=== PATIENT | female | born 2000 | race Two or more races ===

== ENCOUNTER 2025-08-15 21:36 | Emergency (ER) | payer MEDICAID, OTHER ==
[~2025-08-15] VITALS: Ht 162.6 cm; Wt 63.4 kg
--- NOTE | 2025-08-15 22:53 | ED.PDOC ---
History of Present Illness HPI Comments 25 y/o F presents with c/c of laceration to left hand. Patient reports on cutting herself on accident with a knife at home. Bleeding is controlled upon arrival to ED. No further acute symptoms endorsed. 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 History: Denies all 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 Hx Family History Family History: Unknown Social History Smoker: Non-Smoker Alcohol: Denies ETOH Use Drugs: Denies Drug Use Lives In: Home All Other Systems: Reviewed and Negative (As per HPI) Physical Exam General Appearance: No Apparent Distress, Normal HEENT: Pharynx Normal Neck: Full Range of Motion, Non-Tender Respiratory: Lungs Clear, No Respiratory Distress, Normal Breath Sounds Cardiovascular: No Murmur, Normal Peripheral Pulses, Regular Rate/Rhythm Breast Exam: Deferred Gastrointestinal: Non Tender, Soft Genitalia: Deferred Pelvic: Deferred Rectal: Deferred Extremities: Normal range of motion Musculoskeletal : Apperance: Normal Neurologic: Alert, No Motor Deficits, Normal Affect, Normal Mood, No Sensory Deficits Cerebellar Function: Normal Reflexes: NOT DONE Skin: Dry, Normal Color, Warm, Wounds (Lysed superficial laceration to left hand dorsum aspect controlled no obvious foreign body) Lymphatic: No Adenopathy Was a procedure done? Was a procedure done?: No Differential Dx Considerations may include: laceration X-Ray, Labs, Meds, VS Vital Signs Date Time Temp Pulse Resp B/P (MAP) Pulse Ox O2 Delivery O2 Flow Rate FiO2 08/16/25 00:12 71 16 98 Room Air 08/16/25 00:12 97.6 71 16 100/65 (77) 98 97.6 08/15/25 21:37 97.5 81 16 106/77 100 97.5 X-Ray, Labs, Meds, VS Comment Three Steri-Strips applied no bleeding wound dressed Advised to take medication as prescribed side effects discussed. Advised to follow up with his PCP in two days, urgent care, or back in the ER for wound re- evaluation. Advised to keep dressing on, and clean change twice daily. Patient was also advised to return to the ER for increasing pain, numbness, weakness, swelling, fever or chills. Patient indicates understanding and agrees with discharge plan of care. Time of 1ST Reevaluation: 22:05 Reevaluation 1ST: Unchanged Time of 2ND Reevaluation: 00:04 Reevaluation 2ND: Improved Patient Education/Counseling: Diagnosis, Treatment, Need For Follow Up Family Education/Counseling: No Family Present SEPSIS Sepsis Screen Date sepsis recognized/suspect: Aug 15, 2025 Time Sepsis recognized/suspect: 2139 Recent Procedure: No On Antibiotic Therapy: No Respiratory Rate >20: No Heart Rate >90: No Temp<36 C (96.8 F) or >38.3 C: No SBP <90 or MAP <65 mmHG: No New Acute Mental Status Change: No Is the patient on CPAP, BIPAP,: No Vital Signs Date Time Temp Pulse Resp B/P (MAP) Pulse Ox O2 Delivery O2 Flow Rate FiO2 08/16/25 00:12 71 16 98 Room Air 08/16/25 00:12 97.6 71 16 100/65 (77) 98 97.6 08/15/25 21:37 97.5 81 16 106/77 100 97.5 Departure 1 Departure Time of Disposition: 00:03 Impression: Primary Impression: Superficial laceration of left hand Qualified Codes: S61.412A - Laceration without foreign body of left hand, initial encounter Disposition: HOME / SELF CARE / HOMELESS Condition: Stable e-Prescriptions Ibuprofen (Ibuprofen) 800 Mg Tab 800 MG PO Q8HP PRN for 7 Days, #21 TAB Prov: AWAZUHAIR PA[employer] C[employer]KER 08/16/25 Discharged With: Self Critical Care Note Critical Care Time?: No Stability Stability form required: No Heart Score Heart Score: Heart Score Response (Comments) Value History N/A 0 EKG N/A 0 Age N/A 0 Risk Factors N/A 0 Troponin N/A 0 Total 0 I personally scribed for ER ([email or web address]) on 08/15/25 at 22:53. Electronically submitted by Kash Hadley ([email or web address]). ER Aug 15, 2025 22:53 ZUHAIR BILLINGSP Aug 16, 2025 00:04
[2025-08-16] MEDS ORDERED: IBUP-1456 PO (00:05)
[2025-08-16 00:12] VITALS: BP 100/65; PULSE 71; RESP 16; TEMP 97.6; O2SAT 98
== END 2025-08-16 00:12 | disposition home or self-care (01) ==
LOC: ER 21:36
DX: S61.412A Laceration without foreign body of left hand, initial encounter (principal); Z79.899 Other long term (current) drug therapy; W26.0XXA Contact with knife, initial encounter; Y93.89 Activity, other specified; Y92.89 Other specified places as the place of occurrence of the external cause; Y99.8 Other external cause status